=== PATIENT | female | born 1945 | race Caucasian/White ===

== ENCOUNTER → 2020-11-05 | Outpatient (CLI) | payer MEDICARE, OTHER ==
[~2020-11-05] MED LIST: ASPI81TA26 PO; ATOR40TA75 PO; ENAL1TAB46 PO; OMEG10002 PO; OS-CTAB3 PO; SYNT25TA PO; TRES100I SC; VITMTA PO; ZOLO100T PO
== END ==
LOC: M RAD 12:50
PROVIDERS: ATTEND Orthopaedic Surgery Sports Medicine
DX: S82.041A Displaced comminuted fracture of right patella, initial encounter for closed fracture (principal); X58.XXXA Exposure to other specified factors, initial encounter; Y92.9 Unspecified place or not applicable; Y99.9 Unspecified external cause status

== ENCOUNTER → 2020-11-05 | Outpatient (CLI) | payer MEDICARE, OTHER | LOC: M SOG 11:21 | PROVIDERS: ATTEND Orthopaedic Surgery Sports Medicine | DX: S82.041A Displaced comminuted fracture of right patella, initial encounter for closed fracture (principal); X58.XXXA Exposure to other specified factors, initial encounter; Y92.9 Unspecified place or not applicable; Y99.9 Unspecified external cause status ==

== ENCOUNTER → 2020-11-06 | Outpatient (CLI) | payer MEDICARE ==
--- NOTE | 2020-11-07 05:54 | ECGEPIP ---
[facility] Test Date: 2020-11-06 Pat Name: YOLI COFFEY Department: Room: - Gender: Female Litigation Manager: tristin : 1945 Requested By: JEANINE BAUER Order Number: [id number] Reading MD: Earl Kirby Measurements Intervals [place] Rate: 73 P: 85 FL: 160 QRS: 18 QRSD: 84 T: 69 QT: 412 QTc: 453 Interpretive Statements Normal sinus rhythm Incomplete right bundle branch block Minor repolarization abnormalities Comparison tracing not on file Electronically Signed on 11-07-2020 5:54:07 EDT by Earl Kirby
== END ==
LOC: M EKG 16:29
PROVIDERS: ATTEND Orthopaedic Surgery Sports Medicine
DX: Z01.818 Encounter for other preprocedural examination (principal); S82.001A Unspecified fracture of right patella, initial encounter for closed fracture; X58.XXXA Exposure to other specified factors, initial encounter; Y92.89 Other specified places as the place of occurrence of the external cause; Y93.89 Activity, other specified; Y99.8 Other external cause status; I45.19 Other right bundle-branch block; R94.31 Abnormal electrocardiogram [ECG] [EKG]

== ENCOUNTER 2020-11-14 06:09 | Day surgery (SDC) | payer MEDICARE ==
[~2020-11-14] VITALS: Ht 160 cm; Wt 81.1 kg
[~2020-11-14 06:09] MED LIST changes: +LR 1,000 ML IV ONE; +ceFAZolin SOD 2 GM in IV 1 EA IV ONE
[2020-11-14] MEDS ORDERED: propofoL 200 MG/20 ML VIAL As Ordered ONE ×2 (07:16→09:19)
[2020-11-14] MEDS ORDERED: MIDAZOLAM INJ 2MG/2ML VIAL (J2250 PER 1MG) As Ordered ONE (07:16)
[2020-11-14] MEDS ORDERED: fentaNYL 100 MCG/2 ML INJECTION (J3010) As Ordered ONE (07:16)
[2020-11-14] MEDS ORDERED: LIDOCAINE 2% 100MG/5ML SDV (FOR ANES.) As Ordered ONE (07:16)
[2020-11-14] MEDS ORDERED: ONDANSETRON 4MG/2ML VIAL As Ordered ONE (07:17)
[2020-11-14] MEDS ORDERED: dexameTHASONE 4 MG/ML 1ML VIAL (J1100 PER 1MG) As Ordered ONE (07:17)
[2020-11-14] MEDS ORDERED: ACETAMINOPHEN 1000MG 100ML IV BTL (OFIRMEV) (J0131 PER 10MG) As Ordered ONE (08:01)
[2020-11-14] MEDS ORDERED: PHENYLephrine 500MCG 5ML (100MCG/ML) SYRINGE As Ordered ONE (09:38)
[2020-11-14] MEDS ORDERED: ONDANSETRON 4MG/2ML VIAL IV PRN ×2 (10:15→10:20)
[2020-11-14] MEDS ORDERED: LR 1,000 ML IV SCH ×2 (10:15→10:20)
[2020-11-14] MEDS ORDERED: HYDROMORPHONE HCL 0.5 MG/ 0.5 ML SYRINGE (J1170 PER 1) IV PRN (10:15)
--- NOTE | 2020-11-14 10:16 | REP ---
INDICATION: RIGHT PATELLA FRACTURE. COMPARISON: Comparison radiographs are from October 27, 2020.. TECHNIQUE: Two views. 123.5 seconds of fluoroscopy time is reported. FINDINGS: A sequence of 2 last image hold fluoroscopically obtained spot radiographs document open reduction internal fixation of comminuted patellar fracture. IMPRESSION: Procedural imaging. <Electronically signed by Kd Brennan > 11/14/20 1011
[2020-11-14] MEDS ORDERED: ACETAMINOPHEN TAB 650MG DOSE (2X325MG) PO PRN (10:20)
[2020-11-14] MEDS ORDERED: PERCOCET 5MG/325MG TAB PO PRN (10:20)
[2020-11-14] MEDS ORDERED: MORPHINE 2 MG/ML 1ML VIAL (J2270) IV PRN (10:20)
[2020-11-14] MEDS: fentaNYL 100 MCG/2 ML INJECTION (J3010) IV PRN ×3 (10:22→11:01)
[2020-11-14] MEDS: PERCOCET 5MG/325MG TAB PO PRN ×2 (10:25→11:55)
--- NOTE | 2020-11-14 10:32 | ROOPDOC ---
[facility] Report Of Operation Report of Operation DATE OF PROCEDURE: 11/14/20 PREPROCEDURE DIAGNOSES: Right patella fracture. POSTPROCEDURE DIAGNOSES: Same. PROCEDURE PERFORMED: Right patella open reduction internal fixation. SURGEON: Dr. Andrew Bauer MD RV TECHNICIAN: None ANESTHESIA: Spinal anesthetic Dr Abrams. ESTIMATED BLOOD LOSS: Approximately 50 mL. COMPLICATIONS: None. REMARKS: None. FINDINGS: Right comminuted patella fracture SPECIMENS REMOVED: None PROCEDURE NOTE: This 75-year-old female fell onto the anterior aspect of her knee. She sustained a comminuted patella fracture. We discussed the pros and cons risks and benefits of nonoperative versus open reduction internal fixation. She wished to go ahead. She had no further questions. I marked the right lower extremity. DESCRIPTION OF PROCEDURE: The patient was brought to the operating room theater. 2 g of IV Ancef was administered prior to the start of the procedure. Spinal anesthetic was given. They are placed supine on the operating room table. All bony prominences were appropriately padded. Bump under the right hip. Tourniquet applied to the right thigh appropriately padded. Bone foam leg positioner was used to elevate the leg. Lower extremity prepped and draped in the usual sterile fashion with chlorhexidine-based prep solution allowing over 3 minutes drying time prior to draping. Preoperative timeout performed to confirm the site patient and surgery. I began by elevating the limb inflating the tourniquet to 250 mmHg. I made a standard anterior longitudinal incision over the anterior aspect of the right knee. He carried the dissection down through skin and subcutaneous tissue achieve meticulous hemostasis and developing full-thickness flaps. Identified the fracture site. I cleared away any interposed hematoma and fracture callus and periosteum. Fracture is slightly more inferiorly. There is slight comminution at the inferior pole. Otherwise the superolateral aspect of the f racture appears well aligned. I used rongeurs and curettes to freshen the fracture site. I thoroughly irrigated the interarticular area. I achieved preliminary reduction with the leg in full extension and fracture reduction forceps. I took AP and lateral radiographs to confirm appropriate reduction. I then selected an appropriate size [employer]ynthes patellar locking plate. I used the template system for this. I chose the smaller plate with 6 holes inferiorly in the tabs section of the plate. I precontoured the tabs as well as the lateral aspect of the plate. I used the 1.6 mm compression device to secure the plate down to the anterior aspect of the patella. Again I took AP lateral radiographs to ensure proper plate position. I used 1 longitudinal fully threaded cortical screw to achieve compression across the fracture site in the middle proximal tab hold. I then passed for more longitudinal fully threaded cortical locking screws. I then secured the plate proximally using 4 2.7 mm fully threaded locking screws. I interdigitated the screws. I achieved good compression at the fracture site. Plate was only slightly prominent at the medial border of the plate. I made longitudinal incisions in the patellar tendon to achieve good tab to bone compression at the inferior aspect of the plate. I made sure that the screws were all extra-articular. I took final AP and lateral radiographs to ensure proper fracture reduction as well as plate position. Fracture is stable and solid up to bending at least 45 degrees. I then used #2 FiberWire to close the longitudinal splits in the patellar tendon as well as secure the inferior comminution to the plate. I passed the sutures not through the cortical locking screw holes but rather through the openings in the plate. Closed the medial and lateral retinaculums with 1 vicryl. I again thoroughly irrigated the knee using normal saline followed by closure of the subcutaneous tissues with 2-0 Vicryl sutures and skin with Prineo and Dermabond I allowed this to fully dry. This was followed by application of 4 by gauze abdominal pad dressings and overwrapped with 6 inch Minh bandage. Patient's lower extremity was placed in a knee immobilizer in full extension. Case was terminated patient transferred off the operating room table and taken to postanesthetic care unit in stable condition. All sponge needle instrument counts were correct no complications. Estimated blood loss 50 cc. Plan for the patient partial weightbearing in full extension of the knee immobilizer for the first 2 weeks follow-up in the office in 2 weeks time to be discharged home according to day surgery criteria. Postoperative wound instructions were given. It was recommended to keep the wound clean and dry. Dressing changes as needed. It was reinforced with the patient that they should call us or be seen immediately for redness, drainage, or fever. Risk factors for harms from taking opioid medications discussed and assessed including but not limited to personal or family history of substance use disorder, anxiety or depression, , age 65 or older, COPD or other underlying respiratory conditions, and renal or hepatic insufficiency. Discussed with patient concerns and determined any harms they may experience or be currently experiencing such as nausea or constipation, feeling sedated or confused, breathing interruptions during sleep, or taking or craving more opioids than prescribed or difficulty controlling use (addiction). Discussed early warning signs of overdose including confusion, sedation, slurred speech, abnormal gait. ANDREW BAUER MD Nov 14, 2020 10:32
[2020-11-14] MEDS ORDERED: hydrALAZINE 20MG/ML 1ML VIAL (J0360 PER 20MG) As Ordered ONE (10:43)
[2020-11-14] MEDS: hydrALAZINE 20MG/ML 1ML VIAL (J0360 PER 20MG) IV PRN ×2 (10:45→11:00)
[2020-11-14 11:00] VITALS: BP 190/82
[2020-11-14 12:58] VITALS: BP 144/58
== END 2020-11-14 12:50 | disposition home or self-care (01) ==
LOC: M SDC 06:09
PROVIDERS: ATTEND Orthopaedic Surgery Sports Medicine
DX: S82.041A Displaced comminuted fracture of right patella, initial encounter for closed fracture (principal); W01.198A Fall on same level from slipping, tripping and stumbling with subsequent striking against other object, initial encounter; Y92.524 Gas station as the place of occurrence of the external cause; D64.9 Anemia, unspecified; E11.9 Type 2 diabetes mellitus without complications; F41.9 Anxiety disorder, unspecified; F32.9 Major depressive disorder, single episode, unspecified; E03.9 Hypothyroidism, unspecified; Z87.891 Personal history of nicotine dependence; Z79.899 Other long term (current) drug therapy; Z79.82 Long term (current) use of aspirin; Z79.4 Long term (current) use of insulin
CPT/HCPCS: 27524; 76000; C1713; J0131; J0360; J0690; J1100; J2250; J2370; J2405; J3010

== ENCOUNTER → 2020-11-27 | Outpatient (CLI) | payer MEDICARE ==
[~2020-11-27] MED LIST changes: -LR 1,000 ML IV ONE; -ceFAZolin SOD 2 GM in IV 1 EA IV ONE
== END ==
LOC: M SOG 15:43
PROVIDERS: ATTEND Orthopaedic Surgery Sports Medicine
DX: Z47.89 Encounter for other orthopedic aftercare (principal); M25.461 Effusion, right knee; Z98.890 Other specified postprocedural states